=== PATIENT | male | born 1970 | race Caucasian/White ===

== ENCOUNTER 2023-06-08 01:33 | Emergency (ER) | payer OTHER, SELFPAY ==
[2023-06-08 01:36] VITALS: BP 139/78; PULSE 90; RESP 18; TEMP 36.6; O2SAT 97; BMI 32.3
--- NOTE | 2023-06-08 01:46 | XR_ITS ---
The [address] [address] Patient Name: JUANI BROOKS MRN: [id number] date: 1970 Sex: M Assigned Patient Location: ER Current Patient Location: ER Accession/Order Number: [id number] Exam Date: 06/08/2023 01:55 Report Date: 06/08/2023 02:09 At the request of: FREDDIE RENEE Procedure: XR hand RT min 3V EXAM: XR hand RT min 3V HISTORY: pain at base of thumb COMPARISON: None. TECHNIQUE: 3 view study FINDINGS: There is deformity of the distal fifth metacarpal consistent with remote, healed fracture. There is mild interphalangeal joint space narrowing, most marked at the interphalangeal joint of the thumb with associated early osteophytosis. There also is mild narrowing at the scaphotrapezial trapezoid and first carpometacarpal joints. The third and fifth MP joints are narrowed. Thenar soft tissue swelling is noted. XR/XR hand RT min 3V IMPRESSION: Remote, healed fifth metacarpal fracture. Osteoarthritis. No evidence for acute fracture or dislocation. Electronically authenticated by: Shirley WEBER Date: 06/08/2023 02:09
--- NOTE | 2023-06-08 01:48 | ED.GENADUL1 ---
HPI - General Adult General Chief complaint: Fall Stated complaint: head injury Time Seen by Provider: 06/08/23 01:39 History of Present Illness HPI narrative: 52-year-old male presents for laceration just lateral to his right eye and pain at the base of his right thumb. He was on a ladder and he fell and hit his head causing a laceration and somehow injured his thumb. This happened about 15-30 minutes ago. He had a tetanus shot two years ago. Family member accompanies him and he states that the patient is acting normally. No LOC or vomiting or unusual behavior. No other injury was sustained. No neck pain. Related Data Allergies Allergy/AdvReac Type Severity Reaction Status Date / Time Penicillins Allergy Unknown Verified 06/08/23 01:39 Review of Systems ROS Narrative A ten point review of systems is negative except as noted above. PFSH PFS Social History Smoking status: Never smoker Exam Narrative Exam Narrative: Nurses note and vital signs reviewed and patient is not hypoxic. General: The patient appears well and in no apparent distress. Patient is resting comfortably on cart. Skin: Warm, dry, no pallor noted. There is no rash noted. Head: Normocephalic, 2 cm laceration present just lateral to the right eye. The globe is unaffected. Eye: Normal conjunctiva, no drainage, EOMI. PERRL Ears, Nose, Mouth, and Throat: oral mucosa is moist. Nares patent. Cardiovascular: Regular Rate and Rhythm Respiratory: Patient is in no distress, no accessory muscle use, lungs are clear to auscultation, no wheezing, rales or rhonchi Back: non-tender, C-spine nontender GI: nontender Musculoskeletal: he seems have tenderness of base of the right thumb. Skin intact. There is no apparent swelling compared to contralateral side. No bruising or abrasion. Neurological: A&O x4, normal speech Psychiatric: Cooperative Constitutional Vital Signs, click to edit/add: Last Vital Signs Temp 97.8 F 06/08/23 01:36 Pulse 90 06/08/23 01:36 Resp 18 06/08/23 01:36 BP 139/78 06/08/23 01:36 Pulse Ox 97 06/08/23 01:36 O2 Del Method Room Air 06/08/23 01:36 Course Vital Signs Vital signs: Vital Signs Temperature 97.8 F 06/08/23 01:36 Pulse Rate 90 06/08/23 01:36 Respiratory Rate 18 06/08/23 01:36 Blood Pressure 139/78 06/08/23 01:36 Pulse Oximetry 97 06/08/23 01:36 Oxygen Delivery Method Room Air 06/08/23 01:36 Temperature 97.8 F 06/08/23 01:36 Pulse Rate 90 06/08/23 01:36 Respiratory Rate 18 06/08/23 01:36 Blood Pressure 139/78 06/08/23 01:36 Pulse Oximetry 97 06/08/23 01:36 Oxygen Delivery Method Room Air 06/08/23 01:36 Medical Decision Making MDM Narrative Medical decision making narrative: the wound has been repaired. Sutures are to be removed in 7-8 days because of the depth. Tetanus is already up-to-date. X-ray is negative and he has good range of motion of his thumb. He is able to be discharged home. Treatment diagnosis and follow-up were discussed with the patient and his family. He had no loss of consciousness and has no neurologic deficits. Differential Diagnosis Differential Diagnosis: thumb fracture, thumb sprain, facial laceration Imaging Data right hand x-ray: Radiologist's impression: no acute findings, old remote healed 5th metacarpal fracture Discharge Plan Discharge Chief Complaint: Fall Clinical Impression: Facial laceration Patient Disposition: Home, Self-Care Time of Disposition Decision: 02:19 Condition: Good Mode of Transportation: Private Vehicle Instructions: Laceration (ED) Additional Instructions: Sutures to be removed in 7-8 days Stand Alone Forms: Portal Instructions Referrals: ELBA BARNETT [Primary Care Provider] - 1 week Procedures ED Procedure Instructions Procedures Procedures: the following procedure was performed by me. Local filtration was carried out with one percent lidocaine without epinephrine resulting in complete skin anesthesia to the laceration just lateral to the right eye. It was prepped with Betadine ?3 and draped sterilely and explored for foreign bodies normal found. It was then closed with five 5-0 Ethilon sutures resulting in good skin reapproximation and no competition's. He tolerated the procedure well.
== END 2023-06-08 02:28 | disposition home or self-care (01) ==
PROVIDERS: Emergency Provider Emergency Medicine; PCP Family Medicine
DX: S01.81XA Laceration without foreign body of other part of head, initial encounter (principal); M79.644 Pain in right finger(s); W11.XXXA Fall on and from ladder, initial encounter
CPT/HCPCS: 12011; 73130; 99283

== ENCOUNTER 2023-12-22 13:50 | Emergency (ER) | payer OTHER, SELFPAY ==
[2023-12-22 14:04] VITALS: BP 131/92; PULSE 104; RESP 16; TEMP 36.7; O2SAT 97; BMI 33.9
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
--- NOTE | 2023-12-22 14:32 | CT_ITS ---
The [address] [address] Patient Name: JUANI BROOKS MRN: [id number] date: 1970 Sex: M Assigned Patient Location: ER Current Patient Location: [facility] Accession/Order Number: [id number] Exam Date: 12/22/2023 14:26 Report Date: 12/22/2023 15:40 At the request of: JR MARTINEZ Procedure: CT facial bones wo con EXAM: CT facial bones wo con HISTORY: trauma COMPARISON: None. TECHNIQUE: Axial noncontrast CT imaging of the facial bones was performed with coronal and sagittal reformats. This CT exam was performed using one or more of the following dose reduction techniques: Automated exposure control, adjustment of the MA and/or kV according to patient size, or use of iterative reconstruction technique. FINDINGS: Soft tissues: There is a right preseptal periorbital soft tissue contusion. Dermal irregularity with underlying soft tissue contusion is present along the right aspect of the paranasal soft tissues. Orbits: There is inferiorly displaced fracture involving the inferior orbital wall with extension of intraorbital fat into the superior right maxillary sinus. The fracture does partially involve the infraorbital foramen. Globes intact. [place] ocular lenses appropriately positioned. There is asymmetric appearance of the right inferior rectus muscle with central hypodensity seen and rounded morphologic appearance compared to the contralateral side. Extraocular muscle entrapment cannot be excluded. Trace free extraconal hematoma suspected. Sinuses: Intraorbital fat extends into the superior aspect of the right maxillary sinus. Minimal mucosal thickening of the maxillary sinuses. No substantial hemosinus. Midface/nasal cavity: There is mildly medially displaced fracture involving the anterior right nasal bone. Mandible: No fractures or destructive lesions. CT/CT facial bones wo con IMPRESSION: 1. Infraorbital right blowout fracture with extension of intraorbital fat into the superior aspect of the right maxillary sinus. The fracture partially involves the infraorbital foramen. There is associated asymmetric appearance of the right inferior rectus muscle which is rounded in appearance with central dot hypodensity noted. Extraocular muscle entrapment/hematoma cannot be excluded. 2. Associated anterior right periorbital soft tissue contusion with trace suspected in for orbital inferior extraconal hematoma anteriorly. 3. Mildly medially displaced right anterior nasal bone fracture with overlying soft tissue contusion and presumed laceration. Electronically authenticated by: ANIYAH VALENTE Date: 12/22/2023 15:40
[2023-12-22] MEDS: CEFAZOLIN SODIUM/DEXTROSE,ISO 2 GM/50 ML PIGGYBACK IV (16:07)
[2023-12-22 16:38] VITALS: BP 160/102; PULSE 96; O2SAT 97
== END 2023-12-22 17:30 | disposition short-term general hospital (02) ==
PROVIDERS: Emergency Provider Emergency Medicine; PCP Family Medicine
DX: S02.31XA Fracture of orbital floor, right side, initial encounter for closed fracture (principal); S02.2XXB Fracture of nasal bones, initial encounter for open fracture; S05.91XA Unspecified injury of right eye and orbit, initial encounter; W22.8XXA Striking against or struck by other objects, initial encounter; Z79.899 Other long term (current) drug therapy
CPT/HCPCS: 70450; 70486; 96365; 99285

== ENCOUNTER 2025-07-13 02:35 | Emergency (ER) | payer OTHER, SELFPAY ==
[2025-07-13] VITALS (27 sets, daily range): BP systolic 126–162; BP diastolic 84–105; PULSE 88; TEMP 36.7; O2SAT 94–99; BMI 33.0
--- NOTE | 2025-07-13 03:01 | ED.ABDPAIN1 ---
HPI - Abdominal Pain General Chief Complaint: Abdominal Pain Stated Complaint: ABDOMINAL & BACK PAIN Time Seen by Provider: 07/13/25 02:48 Source: patient Mode of arrival: walk-in Limitations: no limitations History of Present Illness HPI narrative: states last week had an episode of RLQ pain that eventually resolved. Around mid night tonight developed pain RLQ and bilat lower back. No fever or nausea. No resp symptoms Related Data Home Medications ?Medication ?Instructions ?Recorded ?Confirmed lisinopril 10 mg tablet 10 mg PO QDAY 12/22/23 07/13/25 simvastatin 40 mg tablet 40 mg PO QDAY 12/22/23 07/13/25 Allergies Allergy/AdvReac Type Severity Reaction Status Date / Time Penicillins Allergy Unknown Rash Verified 07/13/25 02:44 Review of Systems ROS Status of ROS 10 or more systems reviewed and unremarkable except as noted in history and below [facility] Social History Smoking status: Never smoker Little interest or pleasure in doing things: not at all Feeling down, depressed, or hopeless: not at all Exam Constitutional Vital Signs, click to edit/add: Last Vital Signs Temp 98.0 F 07/13/25 02:45 Pulse 88 07/13/25 02:45 Resp 19 07/13/25 02:45 BP 138/84 07/13/25 06:00 Pulse Ox 95 07/13/25 06:20 O2 Del Method Room Air 07/13/25 02:45 Common normals: no apparent distress, average body habitus, oriented x3, no limitations, healthy appearing, alert and well nourished [facility] Common normals: normocephalic and head/scalp atraumatic Eye Common normals: EOMs intact bilaterally and conjunctivae normal Respiratory Common normals: normal respiratory effort, no retractions, no use of accessory muscles and clear to auscultation bilaterally Cardio Common normals: regular rate, regular rhythm, S1 normal heart sound and S2 normal heart sound GI Common normals: soft to palpation and non-tender Back & Pelvis Common normals: no CVA tenderness Extremity Common normals: normal to inspection and full ROM Neuro Common normals: oriented x3, CN's II-XII intact bilaterally, moves all extremities and no focal motor deficits Psych Appearance: grossly normal Course Vital Signs Vital signs: Vital Signs Blood Pressure 153/103 H 07/13/25 02:41 Pulse Oximetry 98 07/13/25 02:41 Temperature 98.0 F 07/13/25 02:45 Pulse Rate 88 07/13/25 02:45 Respiratory Rate 19 07/13/25 02:45 Blood Pressure 138/84 07/13/25 06:00 Pulse Oximetry 95 07/13/25 06:20 Oxygen Delivery Method Room Air 07/13/25 02:45 MDM - Abdominal Pain MDM Narrative Medical decision making narrative: patient presents with atypical pain. Pain across his lower back and also RLQ. No injury. one week ago has RLQ pain that eventually resolved. Tonight awakened by his pain and after 2 hours came to the ER. Exam neg. No tenderness. labs unremarkable and CT abd/pelvis neg. cxray per my review neg also. Patient's pain improved without intervention. Unclear as to the cause of his pain. Advised to follow up with his doctor for recheck or to return if pain recurs/increases Lab Data Labs: Lab Results 07/13/25 07/13/25 Range/Units 03:22 04:08 WBC 7.2 (4.0-11.0) 10^3/uL RBC 4.31 L (4.70-6.10) 10^6/uL Hgb 13.1 L (14.0-18.0) g/dL Hct 39.1 L (42.0-54.0) % MCV 90.7 (80.0-94.0) fL MCH 30.4 (25.9-34.0) pg MCHC 33.5 (29.9-35.2) g/dL RDW 12.3 (11.0-15.0) % Plt Count 202 (150-450) 10^3/uL MPV 10.5 (9.5-13.5) fL Neut % (Auto) 56.6 (43.0-75.0) % Lymph % (Auto) 28.8 (20.5-60.0) % [place] % (Auto) 10.1 (1.7-12.0) % Eos % (Auto) 3.4 (0.9-7.0) % Baso % (Auto) 0.8 (0.2-2.0) % Neut # (Auto) 4.1 (1.4-6.5) 10^3/uL Lymph # (Auto) 2.1 (1.2-3.8) 10^3/uL [place] # (Auto) 0.7 (0.3-0.8) 10^3/uL Eos # (Auto) 0.2 (0.0-0.7) 10^3/uL Baso # (Auto) 0.1 (0.0-0.1) 10^3/uL Abs Immat Gran (auto) 0.02 (0.00-0.03) 10^3/uL Imm/Tot Granulo (auto) 0.3 (0.0-0.5) % D-Dimer <0.19 (<=0.59) mg/L FEU Sodium 141 (136-145) mmol/L Potassium 4.1 (3.5-5.1) mmol/L Chloride 105 (98-107) mmol/L Carbon Dioxide 27.9 (21.0-32.0) mmol/L Anion Gap 12.2 BUN 18.0 (7.0-18.0) mg/dL Creatinine 1.11 (0.70-1.30) mg/dL Est GFR ( Amer) >60 (>=60 mL/min/1.73m^2) Est GFR (Non-Af Amer) >60 (>=60 mL/min/1.73m^2) BUN/Creatinine Ratio 16.2 Glucose 104 (74-106) mg/dL Lactate 0.5 (0.4-2.0) mmol/L Calcium 9.2 (8.5-10.1) mg/dL Total Bilirubin 0.4 (0.2-1.0) mg/dL AST 17 (15-37) U/L ALT 44 (16-63) U/L Alkaline Phosphatase 47 (46-116) U/L Total Protein 7.4 (6.4-8.2) g/dL Albumin 4.1 (3.4-5.0) g/dL Globulin 3.3 g/dL Albumin/Globulin Ratio 1.2 Lipase 57.0 (16.0-77.0) U/L Urine Color Lt. yellow (YELLOW) Urine Clarity Clear (CLEAR) Urine pH 5.5 (5.0-9.0) Ur Specific [place] 1.015 (1.005-1.025) Urine Protein Negative (NEG/TRACE) mg/dL Urine Glucose (UA) Negative (NEGATIVE) mg/dL Urine Ketones Negative (NEGATIVE) mg/dL Urine Occult Blood Negative (NEGATIVE) Urine Nitrite Negative (NEGATIVE) Urine Bilirubin Negative (NEGATIVE) Urine Urobilinogen 0.2 (0.2-1.0) EU/dL Ur Leukocyte Esterase Negative (NEGATIVE) Urine RBC None seen (0-2) #/HPF Urine WBC None seen (NONE SEEN) #/HPF Ur Squamous Epith Cells None seen (NONE/RARE) #/LPF Urine Crystals None seen (None Seen) #/HPF Urine Bacteria None seen (NONE SEEN) #/HPF Urine Casts None seen (NONE SEEN) #/LPF Urine Mucus None seen (NONE SEEN) Ur Culture Indicated? No Discharge Plan Discharge Chief Complaint: Abdominal Pain Clinical Impression: Abdominal pain Patient Disposition: Home, Self-Care Prescriptions / Home Meds: No Action lisinopril 10 mg tablet 10 mg PO QDAY simvastatin 40 mg tablet 40 mg PO QDAY Print Language: Hungarian Instructions: Acute Abdominal Pain (ED) Additional Instructions: follow up with your doctor for recheck. Use ibuprofen or similar for pain. Return if pain worsens Referrals: ELBA BARNETT [Primary Care Provider, Family Practice] - 1 week Discharge Date/Time: 07/13/25 06:41
[2025-07-13 03:29] LABS: Hematocrit 39.1 % (42.0-54.0); Hemoglobin 13.1 g/dL (14.0-18.0); Immature Granulocytes Abs Auto 0.02 10^3/uL (0.00-0.03); Immature Granulocytes Pct Auto 0.3 % (0.0-0.5); Lymphocytes Absolute Auto 2.1 10^3/uL (1.2-3.8); Mean Corpuscular HGB Conc 33.5 g/dL (29.9-35.2); Mean Corpuscular Hemoglobin 30.4 pg (25.9-34.0); Mean Corpuscular Volume 90.7 fL (80.0-94.0); Platelet Count 202 10^3/uL (150-450); Red Blood Count 4.31 10^6/uL (4.70-6.10); White Blood Count 7.2 10^3/uL (4.0-11.0)
[2025-07-13 03:47] LABS: Alanine Aminotransferase 44 U/L (16-63); Albumin Globulin Ratio 1.2; Albumin Level 4.1 g/dL (3.4-5.0); Alkaline Phosphatase 47 U/L (46-116); Anion Gap 12.2; Aspartate Amino Transferase 17 U/L (15-37); Blood Urea Nitrogen 18.0 mg/dL (7.0-18.0); Calcium 9.2 mg/dL (8.5-10.1); Carbon Dioxide 27.9 mmol/L (21.0-32.0); Chloride 105 mmol/L (98-107); Estimated GFR (African America >60 (>=60 mL/min/1.73m^2); Estimated GFR (Non-African Ame >60 (>=60 mL/min/1.73m^2); Globulin 3.3 g/dL; Glucose 104 mg/dL (74-106); Lipase 57.0 U/L (16.0-77.0); Potassium 4.1 mmol/L (3.5-5.1); Sodium 141 mmol/L (136-145); Total Protein 7.4 g/dL (6.4-8.2)
[2025-07-13 03:50] LABS: Lactate/Lactic Acid 0.5 mmol/L (0.4-2.0)
[2025-07-13 04:16] LABS: Glucose Urine UA NEGATIVE (NEGATIVE)
[2025-07-13 04:22] LABS: Cast Seen? NONE SEEN #/LPF (NONE SEEN); Crystals Seen? None Seen #/HPF (None Seen); Urine Culture Indicated NO
--- NOTE | 2025-07-13 05:13 | PC.NURSE ---
this patient updated with new plan of care blood draw for a d-dimer if negative then a chest x-ray but if positive then a CTA chest
--- NOTE | 2025-07-13 05:34 | XR_ITS ---
[address] [address] Patient Name: JUANI BROOKS MRN: [id number] date: 1970 Sex: M Assigned Patient Location: ER Current Patient Location: Accession/Order Number: [id number] Exam Date: 07/13/2025 06:00 Report Date: 07/13/2025 07:22 At the request of: MARYAM GARRISON MD Procedure: XR chest 2V PA AND LATERAL CHEST: CLINICAL HISTORY: Chest pain with breathing, mid back pain COMPARISON: None There is minor basilar atelectasis or scarring. There is no focal parenchymal consolidation, effusion or pneumothorax. The cardiac, hilar and mediastinal silhouettes are within normal limits. There is no vascular congestion. The visualized bony thorax is intact. There are tiny endplate spurs. Degenerative changes are also noted at the shoulders. XR/XR chest 2V IMPRESSION: NO ACUTE CARDIOPULMONARY ABNORMALITY. Impression dictated by: Katy Verma M.D. 07/13/2025 7:22 AM Dictation Location: [place] [address] Electronically authenticated by: [id number] Y Date: 07/13/2025 07:22
--- NOTE | 2025-07-13 06:39 | PC.NURSE ---
i gave this patient verbal and written discharge orders along with 1 work note and this patient voices yes to understanding these. at time of discharge this patient voices no concerns,needs and shows no signs of distress
== END 2025-07-13 06:41 | disposition home or self-care (01) ==
PROVIDERS: Emergency Provider Internal Medicine; PCP Family Medicine
DX: R10.31 Right lower quadrant pain (principal)
CPT/HCPCS: 36415; 71046; 74176; 80053; 81001; 83605; 83690; 85025; 85378; 99285